=== PATIENT | female | born 1980 | race Caucasian/White ===

== ENCOUNTER → 2018-03-06 | Outpatient (CLI) | payer OTHER ==
--- NOTE | 2018-03-06 16:07 | RAD ---
PROCEDURE: CHEST PA LATERAL CLINICAL INDICATION: pre-op chest,hysterectomy 03/13 COMPARISON: None FINDINGS: No pneumothorax identified. Cardiac and mediastinal contours unremarkable. No pulmonary consolidation or acute airspace disease. No acute osseous abnormalities identified. IMPRESSION: No pulmonary consolidation or acute airspace disease. Electronically signed by: David Hernandez DO (03/06/2018 4:04 PM) [facility]
[2018-03-06 16:23] LABS: BASO # 0.1 x10^3/uL (0.0-0.2); BASO % 1 % (0-3); EOS # 0.1 x10^3/uL (0.0-0.7); EOS % 1 % (0-3); HEMATOCRIT 44.2 % (36.0-47.0); LYMPH # 2.9 x10^3/uL (1.0-4.8); LYMPH % 30 % (24-48); MEAN CORPUSCULAR HEMOGLOBIN 31 pg (25-35); MEAN CORPUSCULAR HGB CONC 34 g/dL (31-37); MEAN CORPUSCULAR VOLUME 92 fL (79-100); MONO # 0.7 x10^3/uL (0.0-1.1); MONO % 7 % (0-9); NEUT % 61 % (31-73); PLATELET COUNT 264 x10^3/uL (140-400); RED BLOOD COUNT 4.82 x10^6/uL (3.50-5.40); RED CELL DISTRIBUTION WIDTH 14.1 % (11.5-14.5); WHITE BLOOD COUNT 9.8 x10^3/uL (4.0-11.0)
[2018-03-06 16:24] LABS: BILIRUBIN,URINE NEGATIVE (NEG); CLARITY,URINE CLEAR; COLOR,URINE YELLOW; NITRITE,URINE NEGATIVE (NEG); PH,URINE 5.5; PROTEIN,URINE NEGATIVE (NEG-TRACE); UROBILINOGEN,URINE 0.2 mg/dL (0.2 mg/dL)
[2018-03-06 16:37] LABS: SQUAMOUS EPITHELIAL CELL,UR MOD /LPF
[2018-03-06 16:38] LABS: BACTERIA,URINE 0 /HPF (0-FEW); WBC,URINE 0 /HPF (0-4)
[2018-03-06 19:13] LABS: ALBUMIN/GLOBULIN RATIO 1.2 (1.0-1.7); CREATININE 0.8 mg/dL (0.6-1.0); GFR 81.2; POTASSIUM 4.5 mmol/L (3.5-5.1); TOTAL BILIRUBIN 0.2 mg/dL (0.2-1.0); TOTAL PROTEIN 7.4 g/dL (6.4-8.2)
== END | disposition home or self-care (01) ==
LOC: SURGPAT 14:13
PROVIDERS: ATTEND Obstetrics & Gynecology
DX: Z01.818 Encounter for other preprocedural examination (principal); F17.200 Nicotine dependence, unspecified, uncomplicated
CPT/HCPCS: 36415; 71046; 80053; 81001; 85025

== ENCOUNTER 2018-03-13 05:52 | Observation (INO) | payer OTHER ==
[~2018-03-13] VITALS: Ht 165.1 cm; Wt 74.8 kg
[2018-03-13] MEDS ORDERED: CLINDAMYCIN 900MG PREMIX 50 ML IV ONE (06:00)
[2018-03-13] MEDS ORDERED: MORPHINE SULFATE 2 MG/ML VIAL. IV PRN (07:00)
[2018-03-13] MEDS ORDERED: LIDOCAINE 1% PF 2 ML VIAL. ID PRN (07:00)
[2018-03-13] MEDS ORDERED: IV RINGERS,LACTATED 1000ML 1,000 ML IV SCH (07:00)
[2018-03-13] MEDS ORDERED: ONDANSETRON PF 4 MG/2 ML VIAL. IV PRN ×2 (07:00→09:15)
[2018-03-13] MEDS ORDERED: HYDROmorphone 2 MG/ML VIAL IV PRN (07:00)
[2018-03-13] MEDS ORDERED: PROCHLORPERAZINE 10 MG/2 ML VIAL. IV PRN (07:00)
[2018-03-13] MEDS ORDERED: fentaNYL PF VIAL 100 MCG/2 ML VIAL IV PRN ×2 (07:00)
[2018-03-13] MEDS ORDERED: BUPIVAC MPF-EPI 0.5%-1:200000 30 ML VIAL. ONE (07:08)
[2018-03-13] MEDS ORDERED: METHYLENE BLUE 1% 10 ML VIAL. ONE (07:08)
[2018-03-13] MEDS ORDERED: ESTROGENS, CONJ VAGINAL CREAM 30GM TUBE. ONE (07:08)
[2018-03-13] MEDS ORDERED: ONDANSETRON PF 4 MG/2 ML VIAL. ONE (07:10)
[2018-03-13] MEDS ORDERED: DEXAMETHASONE SOD PHOS 20 MG/5 ML VIAL. ONE (07:10)
[2018-03-13] MEDS ORDERED: KETOROLAC 30 MG/ML INJ FOR OR. INJ ONE (07:10)
[2018-03-13] MEDS ORDERED: PROPOFOL 20 ML IV ONE (07:10)
[2018-03-13] MEDS ORDERED: LIDOCAINE 2% PF Vial for OR 5 ML VIAL. ONE (07:10)
[2018-03-13] MEDS ORDERED: FAMOTIDINE 20 MG/2 ML VIAL ONE (07:10)
[2018-03-13] MEDS ORDERED: ROCURONIUM 50 MG/5 ML VIAL. ONE (07:11)
[2018-03-13] MEDS ORDERED: fentaNYL PF VIAL 100 MCG/2 ML VIAL ONE (07:11)
[2018-03-13] MEDS ORDERED: MIDAZOLAM HCL/PF 2 MG/2 ML VIAL. ONE (07:11)
[2018-03-13] MEDS ORDERED: diphenhydrAMINE 50 MG/ML VIAL ONE (08:06)
[2018-03-13] MEDS ORDERED: GLYCOPYRROLATE 1 MG/5 ML VIAL. ONE (08:59)
[2018-03-13] MEDS ORDERED: NEOSTIGMINE METHYLSULFATE 5 MG/5 ML SYRINGE. ONE (08:59)
[2018-03-13] MEDS ORDERED: SEVOFLURANE > 120 MINUTES. IH ONE (09:07)
[2018-03-13] MEDS ORDERED: CALCIUM CARBONATE 500 MG TAB.CHEW PO PRN (09:15)
[2018-03-13] MEDS ORDERED: 0.9 % SODIUM CHLORIDE 10 ML DISP.SYRIN. IV PRN (09:15)
[2018-03-13] MEDS ORDERED: ZOLPIDEM 5 MG TABLET. PO PRN (09:15)
[2018-03-13] MEDS ORDERED: SIMETHICONE 80 MG TAB.CHEW PO PRN (09:15)
[2018-03-13] MEDS ORDERED: MAGNESIUM HYDROXIDE 2,400 MG/30 ML ORAL.SUSP. PO PRN (09:15)
[2018-03-13] MEDS ORDERED: oxyCODONE/APAP 5/325 1 TAB TABLET PO PRN (09:15)
[2018-03-13] MEDS ORDERED: HYDROcodone/APAP 5/325MG 1 TAB TABLET PO PRN (09:15)
[2018-03-13] MEDS ORDERED: diphenhydrAMINE HCL 25 MG CAPSULE PO PRN (09:15)
[2018-03-13] MEDS ORDERED: NALOXONE 0.4 MG/ML VIAL. IV PRN (09:15)
[2018-03-13] MEDS ORDERED: diphenhydrAMINE 50 MG/ML VIAL IV PRN (09:15)
[2018-03-13] MEDS ORDERED: LACTULOSE 20 GM/30 ML SOLUTION. PO PRN (09:15)
[2018-03-13] MEDS ORDERED: MORPHINE SULFATE 4 MG/ML VIAL. IV PRN (09:15)
[2018-03-13] MEDS ORDERED: MAG HYDROX/ALUMINUM HYD/SIMETH 30 ML ORAL.SUSP PO PRN (09:15)
--- NOTE | 2018-03-13 09:20 | PDOC ---
BRIEF OPERATIVE NOTE Date: Mar 13, 2018 Pre-Op Diagnosis menorrhagia, dysmenorrhea Post-Op Diagnosis same with mild adhesive disease (omental adhesion around umbilicus) Procedure Performed LAVH/bilateral salpingectomy/removal of right paratubal cyst Surgeon Dr. Carmen Carrington [employer] Neha Rich, RN FA Anesthesiologist Dr. Clemons Anesthesia Type: General Blood Loss 50cc IV Fluid 1100cc Urine Output 250cc clear via briggs Specimens Obtained cervix,uterus, bilateral tubes and small paratubal cyst Findings mildly enlarged RV uterus, normal bilateral tubes and ovaries, small right 0.5cm paratubal cyst Complications none Operative Note [id number] CARMEN CARRINGTON MD Mar 13, 2018 09:20
--- NOTE | 2018-03-13 10:10 | OP ---
DATE OF SURGERY: 03/13/2018 PREOPERATIVE DIAGNOSES: Menorrhagia, dysmenorrhea. POSTOPERATIVE DIAGNOSES: Menorrhagia, dysmenorrhea with mild adhesive disease. She had omental adhesions in the middle below the umbilicus. PROCEDURE: Laparoscopic-assisted vaginal hysterectomy, bilateral salpingectomy, removal of right paratubal cyst. SURGEON: Rosa Carrington MD COMPUTER INSTALLER: first shyla Spence. ANESTHESIOLOGIST: Dr. Clemons. BLOOD LOSS: 50 mL. URINE OUTPUT: 250 mL, clear via Keen catheter. IV FLUIDS: 1100 mL of crystalloid. SPECIMEN REMOVED: Cervix, uterus, bilateral tubes and small paratubal cyst on the right. FINDINGS: Mildly enlarged, retroverted uterus; normal bilateral tubes and ovaries; small 0.5 cm right paratubal cyst. COMPLICATIONS: None. DESCRIPTION OF PROCEDURE: This patient was taken to the operating room where general anesthesia was placed. The [facility] was [facility] The patient's abdomen and vagina were prepped and draped in the normal sterile fashion and a Keen catheter had been inserted under sterile technique. Upon my arrival, a timeout was performed. Once everyone agreed, a bivalve speculum was placed in the patient's vagina. A single-tooth tenaculum was used to grasp the anterior lip of the cervix. A 10 mL of 0.25% Marcaine with epinephrine was used to circumferentially inject around the cervix for both hemodissection and hemostatic purposes later. The Valtchev uterine manipulator was placed through the endocervical os, locked on the single-tooth tenaculum and the bivalve speculum was then removed. Top gloves were discarded and changed. Attention was then turned to the abdomen, where a small infraumbilical skin incision was made with the scalpel. A curved Blanquita was used to dissect through the subcuticular layer to the fascia. The 5 mm Visiport was used to directly enter the abdominal cavity. Opening patient pressure was 4 mmHg. Carbon dioxide gas was used to appropriately insufflate the abdominal cavity to maintain a pressure of 15 mmHg. It did look like there was omentum around it, but I was able to get around it and put a right lower quadrant port and a left lower quadrant port in under direct visualization, first finding an area clear, transilluminating the abdomen, finding an area clear of any vasculature, making a small incision and watching it come in under direct visualization and placing 2 mL of air in the trocar, both right and left lower quadrant. I then moved the camera and I was right in front of the adhesion, there was omentum all around me, which is why I could see it, but it was actually clear, so, I put 2 mL of air in and left the umbilical port in and just left all the omental adhesions, so, at this point, the patient was placed in Trendelenburg. The left tube and ovary were elevated, going above the ovary, below the tube and as it was normal and the patient wished to retain them as she was young, I did a salpingectomy, crossed the left round ligament and the left uterine ovarian pedicle, leaving the ovary. This was done exactly the same on the right, elevating the right tube and ovary, going below the tube above the ovary, crossing the right uterine ovarian pedicle and the right round ligament. At this point, the bladder flap was created sharply. There was just mild and normal expected bladder adhesions from her prior , but these were easily taken down with the monopolar hook, using it as a hot knife and then peeling them back off the cervix and peeled down easily. The uterine vessels were obtained on both sides and going down the side through the cardinal and broad ligaments to the level of the uterosacrals bilaterally. The uterus was completely free, it was blanched, so, all instruments were removed from the abdomen and attention was turned vaginally. The single-tooth and Valtchev were removed. A weighted speculum was placed in the patient's vagina. Thyroid Dannielle clamps were placed on the anterior and posterior lips of the cervix respectively. A scalpel was used to make a circumferential incision in the cervix. An open Ray-Nereyda 4 x 4 was used to gently push up the anterior bladder peritoneum and the anterior cul-de-sac was entered. The cervix was elevated and the posterior cul-de-sac was sharply entered with Deshpande scissors and a #0 Vicryl stitch was used to secure the posterior peritoneum to the vaginal cuff, was tagged with a curved Blanquita clamp and the needle was cut and passed off. The short weighted speculum was removed and replaced with the long weighted vaginal Remedios speculum in the posterior cul-de-sac. Curved Ryland clamps x 2 were placed on the patient's left uterosacral ligament, where they were doubly clamped with curved Heaneys, cut with Deshpande scissors and suture ligated x 2 with 0 Vicryl. Second one was taken through the vaginal cuff, securing uterosacral ligament to the vaginal cuff. It was tagged with a straight Blanquita clamp and the needle was cut and passed off. This was done exactly the same on the patient's right side, double clamping the uterosacrals with curved Ryland's, cutting with Deshpande scissors, suture ligating x 2 with 0 Vicryl, taking the second one through the vaginal cuff, tagging it with a straight Blanquita clamp and cutting and passing the needle off. The remaining pedicles on both sides were delineated with the right angle Mixter and the vaginal LigaSure was used to cauterize and cut the remaining pedicles. Cervix, uterus, bilateral tubes were delivered in toto and passed off for permanent pathology. The anterior bladder peritoneum was grasped with a long Allis. Sponge stick was used to examine the pedicles which appeared to be hemostatic. The long Remedios speculum was removed and replaced with a short weighted vaginal speculum. 2-0 Vicryl was taken through the anterior bladder peritoneum, left uterosacral ligament, posterior peritoneum and right uterosacral ligament, thus closing the peritoneum in a pursestring like fashion. The right and left uterosacral tags were clipped. A full length 2-0 Vicryl was used to close the cuff in an anterior to posterior running locked fashion and it was tied to that posterior vaginal cuff tag. Sponge stick was used to examine the cuff and it was completely hemostatic and looked great. At this point, all instruments were removed from the vagina and attention was turned above for a second look. The patient was placed back in Trendelenburg position. Gas was reinsufflated. Copious irrigation revealed mild bleeding from a right pedicle, so the LigaSure was used to cauterize this with excellent results. There was also a small 0.5 pedunculated, what appeared to be a kind of a paratubal cyst, still hanging near the ovary. This was elevated, cut off and easily taken out through one of the trocars. Copious irrigation then revealed hemostasis after getting that one little bleeder on the right side with the LigaSure and Tisseel was placed over all the cuffs with excellent results. The right and left lower quadrant ports, the trocars, balloons were deflated from the 2 mL of air. They were removed under direct visualization and were hemostatic. 2 mL was taken out through the umbilical port. Gas was released from this. Once it was done, all three port sites were closed with 4-0 Monocryl and injected with local at the end. The patient is currently being awakened from anesthesia. ROSA CARRINGTON MD DR: KVNG/jose carlos JOB#: [id number] / [id number]
[2018-03-13 10:19] VITALS: BP 111/68
[2018-03-13 11:19] VITALS: BP 117/73
[2018-03-13 12:22] VITALS: BP 114/72
[2018-03-13] MEDS ORDERED: IBUPROFEN 400 MG TABLET. PO PRN (13:15)
--- NOTE | 2018-03-19 09:07 | PATHOLOGY ---
[facility] Accession Number: [id number] . 01 Material submitted: . UTERUS, CERVIX, BILATERAL FALLOPIAN TUBES AND PERITUBIAL CYST . 01 Clinical history: . Excessive menstrual bleeding. . 02 Diagnosis: Uterus and bilateral fallopian tubes, hysterectomy and bilateral salpingectomy: - Cervix with mild chronic inflammation, squamous metaplasia, and Nabothian cyst. - Proliferative phase endometrium. - Myometrium and serosal surface with no pathologic diagnosis. - Right fallopian tube with no pathologic diagnosis. - Left fallopian tube with simple paratubal cyst. (SKM/jennifer; 03/17/2018) LBQ/03/17/2018 . 02 Electronically signed: . Declan Chaudhari MD, Pathologist NPI- [id number] . 01 Gross description: . Received in formalin labeled "Kaitlin Moya, uterus, cervix, bilateral fallopian tubes, paratubal cyst" is a hysterectomy specimen consisting of a uterus with attached fallopian tubes and without ovaries. The uterus weighs 90 g and measures 8.6 cm from fundus to cervix, 5.3 cm from cornu to cornu, and 4.2 cm from anterior to posterior. The serosa is pink georges and smooth. The cervical os is slitlike and measures 1.2 cm, and the ectocervix is pink-georges and glistening. The cervix is probed patent and the uterus is opened to reveal a 3.0 x 1.9 cm endometrial cavity and a 2.5 x 0.6 cm endocervical canal. The average endometrial thickness measures 0.3 cm and the average myometrial thickness measures 1.9 cm. The uterus is serially sectioned to reveal no leiomyomata. The right fimbriated fallopian tube measures 4.2 cm in length and 0.5 cm in diameter. The left fimbriated fallopian tube measures 3.5 cm in length and 0.8 cm in diameter. The serosal surfaces are pink georges and smooth and the fallopian tubes are serially sectioned to reveal pinpoint lumens. The left fallopian tube displays a thin walled paratubal cyst measuring 0.5 cm in greatest dimension. Software Configuration Engineer sections are submitted as follows: A1 12:00 cervix A2 6:00 cervix A3 anterior endomyometrium A4 posterior endomyometrium A5 customer operations representative right fallopian tube A6 customer operations representative left fallopian tube and paratubal cyst ([facility] [place] [place]; 03/13/2018) SYC/SYC . 02 Pathologist provided ICD-10: N72, N88.8, N83.8, N93.9 . 02 CPT . 498621 Specimen Comment: A courtesy copy of this report has been sent to Specimen Comment: [phone]. Specimen Comment: Report sent to Performed at: 01 [facility] [address], [place] [id number] MD Robert Forrester MD Phone: [phone] Performed at: 02 [facility] [address] [place], [place] [id number] MD Kamron Yepez MD Phone: [phone]
== END 2018-03-13 13:56 | disposition home or self-care (01) ==
LOC: SURG 05:52 → EDUNIT# 07:30 → 3 NORTH 09:25
PROVIDERS: ADMIT Obstetrics & Gynecology; ATTEND Obstetrics & Gynecology
DX: N92.0 Excessive and frequent menstruation with regular cycle (principal); N94.6 Dysmenorrhea, unspecified; N72 Inflammatory disease of cervix uteri; N88.8 Other specified noninflammatory disorders of cervix uteri; N83.8 Other noninflammatory disorders of ovary, fallopian tube and broad ligament; N85.4 Malposition of uterus; K66.0 Peritoneal adhesions (postprocedural) (postinfection); Z98.891 History of uterine scar from previous surgery
CPT/HCPCS: 36415; 58552; 84702; 86850; 86900; 86901; A7015; G0378; G0379; J1100; J1200; J1885; J1956; J2001; J2250; J2405; J2704; J2710; J3010; J3490; J7030; J7120; 88307; Q9968